=== PATIENT | female | born 1940 | race Caucasian/White ===

== ENCOUNTER 2024-03-25 02:17 | Inpatient (IN) | payer MEDICARE, MEDICAID ==
[2024-03-25] VITALS (65 sets, daily range): BP systolic 75–182; BP diastolic 39–107; PULSE 68–100; RESP 15–22; TEMP 36.05844–36.89184; O2SAT 88–100
[~2024-03-25] VITALS: Ht 175.3 cm; Wt 61.3 kg
[2024-03-25] MEDS ORDERED: EPINEPHRINE 10 MG in SODIUM CHLORIDE 0.9% 240 ML IV PRN (02:30)
[2024-03-25 02:57] LABS: HEMOGLOBIN. 13.1 g/dL (12.0-16.0); MEAN CORPUSCULAR HEMOGLOBIN 30.4 pg (28.0-32.0); MEAN CORPUSCULAR HGB CONC 31.1 g/dL (31.0-37.0); MEAN CORPUSCULAR VOLUME 97.9 fL (81.0-99.0); MEAN PLATELET VOLUME 12.3 fl (7.4-10.4); PLATELET 123 x1000/uL (130-400); RED BLOOD CELL COUNT 4.29 mill/uL (4.2-5.4); WHITE BLOOD COUNT 6.6 x1000/uL (4.5-11.0)
[2024-03-25] MEDS: ATROPINE SULFATE 1MG/10ML SYR IV ONE (02:59)
[2024-03-25 03:00] LABS: BG BASE EXCESS -16.1 mmol/L (-2.0-3.0); BG CARBOXYHEMOGLOBIN 0.3 % (0.5-1.5); BG DEOXYHEMOGLOBIN 10.6 % (0.0-5.0); BG FRACTION INSPIRED OXYGEN 100; BG HCO3 ACT 10.7 mmol/L (21.0-28.0); BG METHEMOGLOBIN 0.3 % (0.5-1.5); BG OXYGEN SATURATION 89.3 % (94.0-98.0); BG OXYHEMOGLOBIN 88.8 % (94.0-98.0); BG PCO2 28.9 mmHg (32.0-45.0); BG PH 7.187 (7.350-7.450); BG PO2 69.3 mmHg (83.0-108.0); BG SAMPLE SITE RIGHT RADIAL; BG TOTAL HEMOGLOBIN 11.3 g/dL (12.0-16.0); BG VENT MODE VENT - AC
[2024-03-25] MEDS ORDERED: HEPARIN BOLUS PRN aPTT <30 IV ×2 (03:00→03:08)
[2024-03-25] MEDS ORDERED: HEPARIN BOLUS PRN aPTT 30-44 IV ×2 (03:00→03:08)
[2024-03-25] MEDS ORDERED: HEPARIN 60 UNITS/KG BOLUS IV SCH (03:00)
[2024-03-25 03:02] LABS: CHLORIDE 107 mEq/L (98-107); DIFFERENTIAL COMMENT 1; POTASSIUM 3.4 mEq/L (3.5-5.1); SODIUM 140 mEq/L (136-145)
[2024-03-25] MEDS ORDERED: FENTANYL CITRATE/PF 50MCG/ML 2ML VIAL ONE (03:02)
[2024-03-25] MEDS ORDERED: MIDAZOLAM HCL 2 MG/2 ML VIAL ONE ×2 (03:02→03:22)
[2024-03-25] MEDS ORDERED: IODIXANOL 320MG/ML 100 ML BOTTLE IV ONE ×2 (03:02→03:24)
[2024-03-25] MEDS ORDERED: HEPARIN 1000 UNITS/ML 10ML ONE (03:02)
[2024-03-25] MEDS ORDERED: LIDOCAINE HCL 1% 20ML VIAL ONE (03:02)
[2024-03-25] MEDS: ETOMIDATE 2MG/ML 10ML VIAL IV ONE (03:02)
[2024-03-25] MEDS: SUCCINYLCHOLINE CHLORIDE 200MG/10ML IV ONE (03:02)
[2024-03-25] MEDS: PROPOFOL 10MG/ML 100ML 100 ML IV ONE (03:02)
[2024-03-25 03:03] LABS: CARBON DIOXIDE 22 mEq/L (21-32)
[2024-03-25] MEDS: EPINEPHRINE 10 MG in SODIUM CHLORIDE 0.9% 240 ML IV PRN (03:03)
[2024-03-25] MEDS ORDERED: HEPARIN 1,000 UNITS PREMIX 1,500 ML IV ONE (03:03)
[2024-03-25] MEDS: HEPARIN 60 UNITS/KG BOLUS IV NR (03:03)
[2024-03-25 03:04] LABS: CALCIUM 8.6 mg/dL (8.7-10.4)
[2024-03-25 03:08] LABS: CREATININE 0.8 mg/dL (0.6-1.0); GLUCOSE 253 mg/dL (70-105)
[2024-03-25 03:09] LABS: UREA NITROGEN BLOOD 14 mg/dL (9-23)
[2024-03-25 03:23] LABS: LACTIC ACID 5.6 mmol/L (0.4-2.0)
[2024-03-25 03:24] LABS: TROPONIN I HIGH SENSITIVITY 59 ng/L (3.0-34)
[2024-03-25 03:25] LABS: ETHANOL BLOOD < 10 mg/dL (<10)
[2024-03-25 04:03] LABS: INR 1.2; PARTIAL THROMBOPLASTIN TIME 21.7 sec (23.4-31.0); PROTHROMBIN TIME 13.2 sec (9.6-11.0)
[2024-03-25] MEDS ORDERED: CLOPIDOGREL 75MG TABLET ONE (04:29)
[2024-03-25 04:51] LABS: PLATELET ESTIMATE NORMAL
[2024-03-25] MEDS ORDERED: IPRATROPIUM/ALBUTEROL 0.5-3(2.5)MG/3ML NEB HHN PRN (05:15)
[2024-03-25] MEDS ORDERED: DEXTROSE 50% WATER 50ML SYRINGE IV PRN (05:15)
[2024-03-25] MEDS ORDERED: GUAIFENESIN 200MG/10ML SUGAR FREE UDC PO PRN (05:15)
[2024-03-25] MEDS ORDERED: DOCUSATE SODIUM 100MG CAPSULE PO PRN (05:15)
[2024-03-25] MEDS ORDERED: ACETAMINOPHEN 325MG TABLET PO PRN (05:30)
[2024-03-25] MEDS ORDERED: ONDANSETRON HCL 4MG/2ML INJ IV PRN (05:30)
[2024-03-25] MEDS ORDERED: SODIUM CHLORIDE 0.45% 1,000 ML IV SCH (05:30)
[2024-03-25] MEDS ORDERED: ATROPINE SULFATE 1MG/10ML SYR IV PRN (05:30)
[2024-03-25 06:40] LABS: BG CARBOXYHEMOGLOBIN 0.4 % (0.5-1.5); BG DEOXYHEMOGLOBIN 27.5 % (0.0-5.0); BG FRACTION INSPIRED OXYGEN 100; BG OXYGEN SATURATION 72.4 % (94.0-98.0); BG OXYHEMOGLOBIN 72.1 % (94.0-98.0); BG PO2 41.2 mmHg (83.0-108.0); BG SAMPLE SITE Other; BG TOTAL HEMOGLOBIN 12.4 g/dL (12.0-16.0); BG TOTAL RESPIRATORY RATE 19 b/min; BG VENT MODE VENT - AC
[2024-03-25] MEDS: BLOOD SUGAR DIAGNOSTIC STRIP TEST SCH (07:50)
[2024-03-25 07:51] LABS: BASOPHILS % 0.1 % (0.0-2.0); DIFFERENTIAL COMMENT 0; HEMATOCRIT. 39.1 % (36.0-48.0); HEMOGLOBIN. 12.3 g/dL (12.0-16.0); LYMPHOCYTES % 11.3 % (20.0-50.0); MEAN CORPUSCULAR HEMOGLOBIN 30.7 pg (28.0-32.0); MEAN CORPUSCULAR HGB CONC 31.4 g/dL (31.0-37.0); MEAN CORPUSCULAR VOLUME 97.7 fL (81.0-99.0); MEAN PLATELET VOLUME 12.2 fl (7.4-10.4); MONOCYTES % 8.4 % (2.0-8.0); NEUTROPHILS % 80.2 % (40.0-76.0); PLATELET 144 x1000/uL (130-400); RED CELL DISTRIBUTION WIDTH 13.8 % (11.6-14.6)
[2024-03-25] MEDS: NOREPINEPHRINE 8MG/250ML PMX 250 ML IV PRN (07:52)
[2024-03-25] MEDS: SODIUM BICARBONATE 50 MEQ in DEXTROSE 5% WATER 950 ML IV SCH (07:52)
[2024-03-25] MEDS ORDERED: ASPIRIN 325MG TABLET PO SCH (09:00)
[2024-03-25] MEDS: IPRATROPIUM/ALBUTEROL 0.5-3(2.5)MG/3ML NEB HHN SCH (09:23)
[2024-03-25] MEDS: ASPIRIN 81MG TABLET PO SCH (10:43)
[2024-03-25] MEDS: CLOPIDOGREL 75MG TABLET PO SCH (10:44)
[2024-03-25 10:50] LABS: INR 1.3; PARTIAL THROMBOPLASTIN TIME 43.4 sec (23.4-31.0); PROTHROMBIN TIME 13.8 sec (9.6-11.0)
[2024-03-25] MEDS: PROPOFOL 10MG/ML 100ML 100 ML IV PRN (10:52)
[2024-03-25] MEDS: INSULIN LISPRO 100 UNITS/ML SUBCUT SCH (10:54)
[2024-03-25 11:27] LABS: CHLORIDE 110 mEq/L (98-107); POTASSIUM 3.6 mEq/L (3.5-5.1); SODIUM 140 mEq/L (136-145)
[2024-03-25 11:28] LABS: CARBON DIOXIDE 21 mEq/L (21-32)
[2024-03-25 11:29] LABS: CALCIUM 8.4 mg/dL (8.7-10.4)
[2024-03-25 11:33] LABS: BG BASE EXCESS -3.3 mmol/L (-2.0-3.0); BG CARBOXYHEMOGLOBIN 0.2 % (0.5-1.5); BG FRACTION INSPIRED OXYGEN 100; BG HCO3 ACT 18.9 mmol/L (21.0-28.0); BG METHEMOGLOBIN 0.1 % (0.5-1.5); BG OXYHEMOGLOBIN 99.7 % (94.0-98.0); BG PCO2 26.2 mmHg (32.0-45.0); BG PH 7.477 (7.350-7.450); BG PO2 522.5 mmHg (83.0-108.0); BG SAMPLE SITE RIGHT BRACHIAL; BG VENT MODE VENT - AC
[2024-03-25 11:33] LABS: CREATININE 0.8 mg/dL (0.6-1.0); GLUCOSE 227 mg/dL (70-105)
[2024-03-25 11:34] LABS: BG CARBOXYHEMOGLOBIN 0.4 % (0.5-1.5); BG DEOXYHEMOGLOBIN 27.2 % (0.0-5.0); BG FRACTION INSPIRED OXYGEN 100; BG METHEMOGLOBIN 0.2 % (0.5-1.5); BG OXYGEN SATURATION 72.6 % (94.0-98.0); BG OXYHEMOGLOBIN 72.2 % (94.0-98.0); BG PO2 35.2 mmHg (83.0-108.0); BG SAMPLE SITE Other; BG TOTAL HEMOGLOBIN 11.9 g/dL (12.0-16.0); BG VENT MODE VENT - AC
[2024-03-25 11:34] LABS: UREA NITROGEN BLOOD 13 mg/dL (9-23)
[2024-03-25 11:35] LABS: ALANINE AMINOTRANSFERASE 238 IU/L (10-49); ALBUMIN 3.2 g/dL (3.2-4.8); ASPARTATE AMINOTRANSFERASE 272 IU/L (<34)
[2024-03-25 11:36] LABS: BILIRUBIN TOTAL 1.2 mg/dL (0.1-1.0); PHOSPHORUS 2.7 mg/dL (2.5-4.9); PROTEIN TOTAL 5.5 g/dL (6.0-8.3)
[2024-03-25] MEDS: HEPARIN 25,000 UNITS PREMIX 250 ML IV SCH (11:38)
[2024-03-25] MEDS ORDERED: DEXTROSE 5% IV SCH (11:45)
[2024-03-25] MEDS ORDERED: WATER IV SCH (11:45)
[2024-03-25] MEDS ORDERED: SODIUM BICARBONATE IV SCH (11:45)
[2024-03-25] MEDS: SODIUM CHLORIDE 0.9% 1,000 ML IV SCH (12:05)
[2024-03-25] MEDS: SODIUM CHLORIDE 0.9% 500 ML IV ONE (12:40)
[2024-03-25] MEDS: MAGNESIUM 1 G PREMIX 100 ML IV NR (12:59)
[2024-03-25] MEDS ORDERED: HEPARIN 25,000 UNITS PREMIX 250 ML IV SCH (13:30)
[2024-03-25] MEDS: SODIUM BICARBONATE IV SCH (18:54)
[2024-03-25] MEDS: WATER IV SCH (18:54)
[2024-03-25] MEDS: DEXTROSE 5% IV SCH (18:54)
[2024-03-25] MEDS ORDERED: ATORVASTATIN CALCIUM 20MG TABLET PO SCH (21:00)
[2024-03-26] MEDS ORDERED: PANTOPRAZOLE SODIUM 40 MG/VIAL IV SCH (09:00)
== END 2024-03-25 21:00 | disposition short-term general hospital (02) | DRG 215 ==
LOC: ER 02:30 → CVICU 03:00
PROVIDERS: ADMIT Preventive Medicine Clinical Informatics; ATTEND Preventive Medicine Clinical Informatics
PROC: 027004Z Dilation of Coronary Artery, One Artery with Drug-eluting Intraluminal Device, Open Approach (ICD-10-PCS; principal; 2024-03-25)
PROC: 02HA3RZ Insertion of Short-term External Heart Assist System into Heart, Percutaneous Approach (ICD-10-PCS; 2024-03-25)
PROC: 5A0221D Assistance with Cardiac Output using Impeller Pump, Continuous (ICD-10-PCS; 2024-03-25)
PROC: 4A023N8 Measurement of Cardiac Sampling and Pressure, Bilateral, Percutaneous Approach (ICD-10-PCS; 2024-03-25)
PROC: B2111ZZ Fluoroscopy of Multiple Coronary Arteries using Low Osmolar Contrast (ICD-10-PCS; 2024-03-25)
PROC: B2151ZZ Fluoroscopy of Left Heart using Low Osmolar Contrast (ICD-10-PCS; 2024-03-25)
PROC: B41G1ZZ Fluoroscopy of Left Lower Extremity Arteries using Low Osmolar Contrast (ICD-10-PCS; 2024-03-25)
PROC: 5A1935Z Respiratory Ventilation, Less than 24 Consecutive Hours (ICD-10-PCS; 2024-03-25)
PROC: 0BH17EZ Insertion of Endotracheal Airway into Trachea, Via Natural or Artificial Opening (ICD-10-PCS; 2024-03-25)
PROC: 02HQ32Z Insertion of Monitoring Device into Right Pulmonary Artery, Percutaneous Approach (ICD-10-PCS; 2024-03-25)
DX: I21.19 ST elevation (STEMI) myocardial infarction involving other coronary artery of inferior wall (principal); I46.2 Cardiac arrest due to underlying cardiac condition; R57.0 Cardiogenic shock; J96.01 Acute respiratory failure with hypoxia; I49.01 Ventricular fibrillation; G93.40 Encephalopathy, unspecified; I50.20 Unspecified systolic (congestive) heart failure; E87.20 Acidosis, unspecified; E78.5 Hyperlipidemia, unspecified; I25.10 Atherosclerotic heart disease of native coronary artery without angina pectoris; I27.20 Pulmonary hypertension, unspecified; E87.6 Hypokalemia; I48.91 Unspecified atrial fibrillation
CPT/HCPCS: 31500; 33990; 36415; 36600; 71045; 80048; 80053; 80061; 80320; 82375; 82805; 82962; 83605; 83735; 83880; 84100; 84484; 85025; 85347; 87070; 92941; 93005; 93306; 93460; 94002; 94640; 99291; C1725; C1760; C1769; C1874; C1887; C1893; J1644; J1815; J2250; J2704; J3010; J3475; J3490; J7030; J7050; J7070; L1830; Q9967; G0480